=== PATIENT | male | born 1960 | race Asian ===

== ENCOUNTER 2021-03-25 20:00 | Emergency (ER) | payer MEDICAID ==
[~2021-03-25] VITALS: Ht 177.8 cm; Wt 75.9 kg
[2021-03-25] MEDS ORDERED: SODIUM CHLORIDE FLUSH 10ML SYR IVF ONE (20:30)
[2021-03-25 20:50] LABS: BASOPHILS % (AUTO) 1 % (0-1); EOSINOPHILS % (AUTO) 3 % (1-7); LYMPHOCYTES % (AUTO) 32 % (22-44); MEAN CORPUSCULAR HEMOGLOBIN 29.6 pg (27.5-34.5); MEAN CORPUSCULAR HGB CONC 33.8 g/dL (33.2-36.2); MEAN PLATELET VOLUME 7.7 fL (7.4-10.4); MONOCYTES % (AUTO) 6 % (2-9); NEUTROPHILS % (AUTO) 58 % (42-75); PLATELET COUNT 283 x10^3/uL (130-400); RED BLOOD COUNT 5.07 x10^6/uL (4.38-5.82); RED CELL DISTRIBUTION WIDTH 13.5 % (9.4-14.8)
[2021-03-25 21:02] LABS: ALBUMIN 3.6 g/dL (3.4-5.0); ANION GAP 5 mmol/L (5-15); CALCIUM 9.1 mg/dL (8.5-10.1); CHLORIDE 105 mmol/L (98-107)
[2021-03-25 21:06] LABS: ALANINE AMINOTRANSFERASE 31 U/L (12-78); ALKALINE PHOSPHATASE 73 U/L (45-117); BILIRUBIN,TOTAL 0.3 mg/dL (0.2-1.0); CREATININE 1.11 mg/dL (0.7-1.3); TOTAL PROTEIN 7.8 g/dL (6.4-8.2)
--- NOTE | 2021-03-25 22:11 | NUR ---
Pt ambulatory to room from lobby at this time.
--- NOTE | 2021-03-25 22:11 | NUR ---
PT PRESENTS TO ER FOR RIGHT LOWER ABDOMINAL PAIN, PT STATES 15 YEARS AGO HE HAD KIDNEY STONES REMOVED AND THIS FEELS LIKE THE SAME TYPE OF PAIN, PT STATES HIS URINE IS A LITTLE BROWN, PT STATES THIS PAIN STARTED TODAY BUT FOR THE LAST 3 DAYS STOMACH WAS TIGHT FEELING, PT COMPLAINING OF N/V, NAD AT THIS TIME
[2021-03-25 22:41] LABS: MICROSCOPIC AUTO
--- NOTE | 2021-03-25 23:46 | NUR ---
PT LAYING IN BED, AT BEDSIDE, ALL NEEDS IN REACH, CALL LIGHT IN REACH, NAD AT THIS TIME
[2021-03-26 00:45] VITALS: BP 108/74
== END 2021-03-26 00:48 | disposition home or self-care (01) ==
LOC: ED 20:30
DX: N20.2 Calculus of kidney with calculus of ureter (principal); R10.31 Right lower quadrant pain; R11.2 Nausea with vomiting, unspecified; R31.9 Hematuria, unspecified
CPT/HCPCS: 36415; 74021; 74176; 80053; 81001; 85025; 99285